=== PATIENT | female | born 1980 | race Caucasian/White ===

== ENCOUNTER 2020-04-06 14:48 | Outpatient (CLI) | payer OTHER, SELFPAY ==
--- NOTE | ~2020-04-06 | XR_ITS ---
EXAMINATION: XR ankle LT min 3V DATE: 04/06/2020 15:24 INDICATION: Acute left ankle pain TECHNIQUE: Anteroposterior, oblique, mortise, and lateral views of the left ankle were obtained. COMPARISON: None. FINDINGS: Alignment is normal. No fracture. Joint spaces are normal. Moderate-sized Achilles and plantar calcan eal spurs. Soft tissue swelling about the left ankle and lower leg which may be related to body habit us. IMPRESSION: 1. No acute osseous abnormality. Reviewed, dictated and finalized at location B.
== END 2020-04-06 14:49 | disposition home or self-care (01) ==
LOC: CHSIMG 14:56
PROVIDERS: PCP Physician Assistant; Visit Provider Nurse Practitioner Family
DX: M25.572 Pain in left ankle and joints of left foot (principal)
CPT/HCPCS: 73610

== ENCOUNTER 2020-04-25 08:22 | Outpatient (CLI) | payer OTHER, SELFPAY ==
--- NOTE | ~2020-04-25 | MR_ITS ---
EXAMINATION: MR ankle LT wo con DATE: 04/25/2020 09:17 INDICATION: 2 months of lateral left ankle pain TECHNIQUE: Magnetic resonance imaging (MRI) of the left ankle was performed without intravenous contr ast. Sequences included sagittal, coronal, and axial proton-density weighted fast spin echo without a nd with fat saturation. COMPARISON: None. FINDINGS: Medial ankle ligaments: Deep and superficial deltoid ligaments as well as the spring ligament are normal. Lateral ankle ligaments: The anterior and posterior inferior tibiofibular ligaments are normal. The anterior talofibular, calc aneofibular and posterior talofibular ligaments are normal. Tendons: Small enthesophyte at the calcaneal insertion of the otherwise normal Achilles tendon. Small amount o f fluid along the otherwise normal peroneus longus and brevis tendons consistent with mild tenosynovi tis. The tibialis anterior and extensor hallucis longus and extensor digitorum longus tendons are nor mal. The tibialis posterior, flexor digitorum longus and flexor hallucis longus tendons are normal. Plantar fascia: Large plantar calcaneal spur. There is prominent thickening and mild increased signal of the proximal aspect of the central component of the plantar aponeurosis likely degenerative chronic enthesopathy without surrounding edema to suggest acute plantar fasciitis. Bones//other: Nonspecific marrow edema in the talus along the posterior facet of the subtalar joint surrounding a r egion of linear low signal intensity potentially representing a fracture line. Marrow signal is other paiz normal. 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 There is a 1.7 x 0.8 x 1. 3 cm multilobulated ganglion cyst overlying the dorsal neck of the talus which appears to arise from the talonavicular joint. Physiologic amount fluid in the joint spaces. IMPRESSION: 1. Nonspecific marrow edema in the talus surrounding linear low signal paralleling the posterior face t of the subtalar joint potentially representing a stress fracture line. Alternatively the edema coul d be reactive related to the mild osteoarthritis at the subtalar joint. 2. Prominent chronic plantar enthesopathy with large plantar calcaneus spur and thickening of the pro ximal plantar aponeurosis. 3. Small multiloculated ganglion cyst along the dorsal neck of the talus which appears to arise from the talonavicular joint. 4. Mild subtalar and calcaneocuboid osteoarthritis. Reviewed, dictated and finalized at location A. ERS' COMPENSATION MEDIATOR IMPRESSION: 1. Nonspecific marrow edema in the talus surrounding linear low signal parallel ing the posterior facet of the subtalar joint potentially representing a stress fracture line. Alternatively the edema could be reactive related to the mild o steoarthritis at the subtalar joint. 2. Prominent chronic plantar enthesopathy with large plantar calcaneus spur and thickening of the proximal plantar aponeurosis. 3. Small multiloculated ganglion cyst along the dorsal neck of the talus which appears to arise from the talonavicular joint. 4. Mild subtalar and calcaneocuboid osteoarthritis.
== END 2020-04-25 08:23 | disposition home or self-care (01) ==
PROVIDERS: PCP Nurse Practitioner Family; Visit Provider Nurse Practitioner Family
DX: M25.572 Pain in left ankle and joints of left foot (principal); M77.32 Calcaneal spur, left foot; M67.472 Ganglion, left ankle and foot
CPT/HCPCS: 73721

== ENCOUNTER 2020-07-03 20:53 | Emergency (ER) | payer OTHER, SELFPAY ==
--- NOTE | ~2020-07-03 | XR_ITS ---
EXAMINATION: XR chest 1V portable DATE: 07/03/2020 21:35 INDICATION: Right-sided chest pain radiating to the right arm TECHNIQUE: frontal view of the chest was obtained. COMPARISON: None FINDINGS: The lungs are clear with no focal airspace opacities, pulmonary edema, pleural effusion or pneumothor ax. The cardiomediastinal silhouette is normal. IMPRESSION: 1. No acute cardiopulmonary disease. Reviewed, dictated and finalized at location A. CONCILIATOR
[2020-07-03 21:05] VITALS: BP 136/82; PULSE 87; RESP 22; TEMP 36.6; O2SAT 97
--- NOTE | 2020-07-03 21:14 | ECG_ITS ---
Measurements Intervals [place] Rate: 68 P: [place]: 0 QRS: 20 QRSD: 98 T: 31 QT: 407 QTc: 435 Interpretive Statements SINUS OR ECTOPIC ATRIAL RHYTHM DELAYED PRECORDIAL R/S TRANSITION BASELINE ARTIFACT- I, II, III, AVL, AVF, V5-V6 BORDERLINE ECG Electronically Signed On 07-04-2020 9:01:14 DIRECT MAIL COORDINATOR by Shabbir Cowan D.O.
[2020-07-03] MEDS: ASPIRIN 81 MG CHEWABLE TABLET 324 MG PO (21:31)
[2020-07-03 21:38] VITALS: PULSE 87; O2SAT 97
[2020-07-03 21:39] LABS: Basophils Absolute Auto 0.03 K/mm3 (0.00-0.10); Basophils Percent Auto 0.2 % (0.0-1.0); Eosinophils Absolute Auto 0.19 K/mm3 (0.02-0.50); Eosinophils Percent Auto 1.5 % (1.0-6.0); Hematocrit 35.5 % (35.0-49.0); Hemoglobin 11.8 g/dL (12.0-15.0); Immature Granulocyte Absolute 0.05 K/mm3 (0.00-0.00); Immature Granulocyte Percent A 0.4 % (0.0-0.0); Lymphocytes Absolute Auto 4.36 K/mm3 (1.10-4.50); Lymphocytes Percent Auto 33.9 % (18.0-42.0); Mean Corpuscular HGB Conc 33.2 g/dL (32.0-36.0); Mean Corpuscular Hemoglobin 28.6 pg (27.0-31.0); Mean Corpuscular Volume 86.2 fL (78.0-102.0); Monocytes Absolute Auto 0.66 K/mm3 (0.10-0.90); Monocytes Percent Auto 5.1 % (2.0-11.0); Neutrophils Absolute Auto 7.6 K/mm3 (1.7-7.2); Neutrophils Percent Auto 58.9 % (50.0-70.0); Platelet Count Result 372 K/mm3 (150-420); Red Blood Count 4.12 M/mm3 (4.20-5.40); Red Cell Distribution Width 13.9 % (11.6-14.4); White Blood Count 12.9 K/mm3 (4.8-10.8)
[2020-07-03 21:52] LABS: D Dimer 0.24 mg/L (0.19-0.50)
[2020-07-03] MEDS: KETOROLAC 30 MG/ML VIAL (*BKC) IV PUSH (21:58)
[2020-07-03 21:59] LABS: Alanine Aminotransferase 24 U/L (14-59); Albumin Level 3.5 g/dL (3.4-5.0); Alkaline Phosphatase 107 U/L (46-116); Anion Gap 7 mmol/L (8-16); Aspartate Amino Transferase 13 U/L (15-37); Bilirubin,Total 0.2 mg/dL (0.00-1.00); Blood Urea Nitrogen 19 mg/dL (7-18); Calcium 9.2 mg/dL (8.5-10.1); Carbon Dioxide 28 mmol/L (21-32); Chloride 100 mmol/L (98-108); Estimated CRCL calculation 92 ml/min; Estimated Glomerular Filt Rate 56; Glucose 111 mg/dL (70-99); Osmolality Calculated 283 mOsm/kg (285-295); Potassium 3.7 mmol/L (3.5-5.1); Sodium 135 mmol/L (136-145); Total Protein 7.9 g/dL (6.4-8.2)
[2020-07-03 22:01] LABS: Troponin I 5.4 ng/L (0.00-60.4)
--- NOTE | 2020-07-03 22:51 | ED.CHESTPAIN ---
HPI - Chest Pain General Chief Complaint: Chest Pain Stated Complaint: chest pain in chest/arm on R side Time Seen by Provider: 07/03/20 21:15 Source: patient Mode of arrival: ambulatory Limitations: no limitations History of Present Illness HPI narrative: Chest pain midsternal radiating to left arm. This is associated with mild shortness of breath. MD complaint: chest pain Pertinent past history: other (anxiety disorder) Timing of current episode: episodic Pain location: parasternal Pain radiation: right arm Severity: moderate Quality: tightness Relieving factors: nothing Exacerbating factors: nothing Context: recent illness Associated symptoms: nausea and vomiting Risk Factors Coronary artery disease risk factors: none Thoracic aortic dissection risk factors: none Related Data Home Medications Medication Instructions Recorded Confirmed acyclovir 400 mg PO PRN PRN 07/03/20 07/03/20 atorvastatin 40 mg PO DAILY 07/03/20 07/03/20 buspirone 5 mg PO DAILY 07/03/20 07/03/20 cyclobenzaprine 10 mg PO PRN PRN 07/03/20 07/03/20 hydrochlorothiazide 25 mg PO DAILY 07/03/20 07/03/20 liothyronine 5 mcg PO DAILY 07/03/20 07/03/20 lorazepam 1 mg PO DAILY 07/03/20 07/03/20 losartan 50 mg PO DAILY 07/03/20 07/03/20 Allergies Allergy/AdvReac Type Severity Reaction Status Date / Time Sulfa (Sulfonamide Allergy Unknown Unknown Verified 05/23/20 10:29 Antibiotics) Review of Systems Constitutional: Constitutional: Reports no additional constitutional complaints Eyes: Eyes: Reports no additional eye complaints ENT: Reports system reviewed and no additional complaints, except as documented Cardiovascular: Cardiovascular: Reports no additional cardiovascular complaints Respiratory: Respiratory: Reports no additional respiratory complaints Gastrointestinal: Gastrointestinal: Reports no additional gastrointestinal complaints Genitourinary: Genitourinary: Reports no additional female genitourinary complaints Musculoskeletal: Musculoskeletal: Reports no additional musculoskeletal complaints Integumentary/Breasts: Skin/Breast: Reports system reviewed and no additional complaints, except as docu Neurologic: Reports system reviewed and no additional complaints, except as documented Psychiatric: Psychiatric: Reports no additional psychiatric complaints Endocrine: Endocrine: Reports no additional endocrine complaints Hematologic/Lymphatic: Hematologic/Lymphatic: Reports no additional hematologic/lymphatic complaints Allergic/Immunologic: Allergic/Immunologic: Reports no additional allergic/immunologic complaints PMFSH Past Medical History Medical History Anxiety Fibrosis of subtalar joint Hypertension Obstructive sleep apnea Stress fracture of tarsal bone of left foot Surgical History Surgical History History of tonsillectomy Family History Family History Other Asthma Heart disease Hypertension Social History Social History Smoking status: Never smoker Alcohol intake: never Substance use: never Substance use type: does not use Gender identity (if verbalized by the patient): Female Exam Narrative: Exam Narrative: atypical chest pain in midsternal area and radiating to right arm. Const: General: cooperative Nutritional Appearance: average body habitus Orientation/consciousness: oriented to person and oriented to place HENMT: Head: normal to inspection Ears: hearing grossly normal bilaterally, external ears normal and TM's normal bilaterally General nose exam: Normal external nose present Face and sinus: normal facial exam Mouth: Yes Normal oral and palatal mucosa present, Yes oropharynx normal and Yes moist mucous membranes Teeth and gingiva: dentition normal Throat: posterior oropharynx no
[2020-07-03 23:43] VITALS: BP 127/53; PULSE 82; RESP 20; O2SAT 97
[2020-07-03 23:47] LABS: BNP 12.7 pg/mL (0-100)
== END 2020-07-04 | disposition home or self-care (01) ==
PROVIDERS: Emergency Provider Emergency Medicine; PCP Physician Assistant
DX: R00.2 Palpitations (principal)
CPT/HCPCS: 36415; 71045; 80053; 83880; 84484; 85025; 85380; 93005; 96374; 99283; 99284; A9270; J1885

== ENCOUNTER 2020-07-04 14:10 | Outpatient (CLI) | payer OTHER, SELFPAY ==
--- NOTE | 2020-07-04 14:17 | ECHO_ITS ---
Patient Info Name: Helen Parr Age: 40 years : 1980 Gender: Female Ht: 64 in Wt: 350 lbs BSA: 2.79 m2 HR: 72 bpm BP: 142 / 70 mmHg Heart Rhythm: Sinus Rhythm Technical Quality: Poor Exam Date: 07/04/2020 2:30 PM Exam Location: [facility] Patient Status: Outpatient Admit Date: 07/04/2020 Staff Ordering Physician: Wilver Pollock MD Financial Systems Administrator: Marce Min RDCS Attending Provider: Wilver Pollock MD Referring Physician: Chu BURROUGHS Exam Type: CA echo doppler color flow Study Info Indications R00.2 - Palpitations Complete two-dimensional, color flow and Doppler transthoracic echocardiogram is performed. Strain analysis performed. Reason for Poor Study: poor echocardiographic windows History/Risk Factors Hypertension: Yes Dyslipidemia: Yes Congenital Heart Disease (CHD): No Peripheral Arterial Disease (PAD): No Myocardial Infarction (MD): No Chronic Lung Disease: No Obesity: Yes Renal Disease: No Congestive Heart Failure (CHF): No Cardiomyopathy/LV Systolic Dysfunction: No Diabetes Mellitus: No COPD: No Tobacco Use: Never Cerebrovascular Disease: No Family History: Coronary Artery Disease Deep Vein Thrombosis (DVT): None Dialysis: None Frailty Scale (CSHA): 3: Managing Well Cardiac Arrest: No Summary 1. Complete two-dimensional, color flow and Doppler transthoracic echocardiogram is performed. 2. Left ventricular chamber dimension is normal. 3. Left ventricular systolic function is normal, estimated at 65-70%. 4. The left ventricular diastolic function is normal. 5. Global longitudinal strain is normal at -19.2%. 6. There is trace mitral valve regurgitation. Left Ventricle Global longitudinal strain is normal at -19.2%. Left ventricular chamber dimension is normal. Left ventricular systolic function is normal, estimated at 65-70%. The left ventricular diastolic function is normal. Right Ventricle Right ventricular chamber dimension is normal. Right ventricular systolic function is normal. Left Atria Left atrial chamber dimension is normal. Right Atria Right atrial chamber dimension is normal. Aortic Valve The aortic valve is not well visualized. There is no aortic valve stenosis. There is no aortic valve regurgitation. Pulmonic Valve There is no pulmonic regurgitation. Mitral Valve There is no mitral valve stenosis. There is trace mitral valve regurgitation. Tricuspid Valve There is no tricuspid valve regurgitation. Pericardium/Pleural There is no pericardial effusion. Inferior Vena Cava Normal inferior vena cava with >50% collapse upon inspiration consistent with normal right atrial pressure, 5 mmHg. Aorta The aortic root size at the sinus of Valsalva is normal. Left Ventricular Outflow Tract Name Value Normal LVOT 2D LVOT Diameter 1.5 cm LVOT Doppler LVOT Peak Velocity 184 cm/s LVOT Peak Gradient 14 mmHg LVOT Mean Gradient 7 mmHg LVOT VTI
== END 2020-07-04 14:11 | disposition home or self-care (01) ==
PROVIDERS: PCP Physician Assistant; Visit Provider Emergency Medicine
DX: R00.2 Palpitations (principal)
CPT/HCPCS: 93225; 93226; 93306

== ENCOUNTER 2020-07-11 12:50 | Emergency (ER) | payer OTHER, SELFPAY ==
[2020-07-11] VITALS (38 sets, daily range): BP systolic 96–142; BP diastolic 55–101; PULSE 66–86; RESP 10–22; TEMP 36.6; O2SAT 94–100
--- NOTE | ~2020-07-11 | XR_ITS ---
EXAMINATION: XR chest 1V portable EXAM DATE: 07/11/2020 14:08 INDICATION: Shortness of breath, chest pain x 1mo . TECHNIQUE: Portable AP frontal chest x-ray was obtained. Comparison is made to prior examination from 07/03/2020. FINDINGS: The lungs are clear. There are no pleural effusions. The cardiomediastinal silhouette is within normal limits. There is no pneumothorax suspected. The bones and soft tissues are unremarkab le. IMPRESSION: Normal chest x-ray exam. Reviewed, dictated and finalized at location A. ASTRUCTURE TECHNICIAN IMPRESSION: Normal chest x-ray exam.
--- NOTE | 2020-07-11 13:01 | ECG_ITS ---
Measurements Intervals [place] Rate: 69 P: -15 IN: 128 QRS: 23 QRSD: 97 T: 35 QT: 413 QTc: 445 Interpretive Statements SINUS RHYTHM DELAYED PRECORDIAL R/S TRANSITION BASELINE ARTIFACT- I, II, III, AVR, AVL, AVF BORDERLINE ECG Electronically Signed On 07-11-2020 14:13:12 TELEHEALTH NURSE EDUCATOR by Shabbir Cowan D.O.
[2020-07-11 13:26] LABS: Basophils Absolute Auto 0.04 K/mm3 (0.00-0.10); Basophils Percent Auto 0.4 % (0.0-1.0); Eosinophils Absolute Auto 0.17 K/mm3 (0.02-0.50); Eosinophils Percent Auto 1.5 % (1.0-6.0); Hematocrit 36.3 % (35.0-49.0); Immature Granulocyte Absolute 0.05 K/mm3 (0.00-0.00); Immature Granulocyte Percent A 0.4 % (0.0-0.0); Lymphocytes Percent Auto 29.5 % (18.0-42.0); Mean Corpuscular HGB Conc 33.1 g/dL (32.0-36.0); Mean Corpuscular Hemoglobin 28.4 pg (27.0-31.0); Mean Platelet Volume 10.3 fl (9.2-11.8); Monocytes Absolute Auto 0.59 K/mm3 (0.10-0.90); Monocytes Percent Auto 5.3 % (2.0-11.0); Neutrophils Absolute Auto 7.1 K/mm3 (1.7-7.2); Neutrophils Percent Auto 62.9 % (50.0-70.0); Platelet Count Result 408 K/mm3 (150-420); Red Blood Count 4.22 M/mm3 (4.20-5.40); Red Cell Distribution Width 13.8 % (11.6-14.4); White Blood Count 11.2 K/mm3 (4.8-10.8)
--- NOTE | 2020-07-11 13:29 | ED.GENADULT ---
HPI - General Adult General Chief complaint: Chest Pain Stated complaint: chest pressure pains and sob Source: patient Mode of arrival: ambulatory Limitations: no limitations History of Present Illness HPI narrative: Helen is a 40F with a PMH of HTN, obesity and migraines that presented to the ED with chest pain. She has been having pains on and off for a month. Today she woke up with chest pressure that radiates to the left shoulder. It is associated with dizziness, SOB but no N/V or syncope. It is worse with activity and better with rest. She has a sister with CAD at a young age as well as a strong family history of CAD. Related Data Home Medications Medication Instructions Recorded Confirmed acyclovir 400 mg PO PRN PRN 07/03/20 07/11/20 atorvastatin 40 mg PO DAILY 07/03/20 07/11/20 buspirone 5 mg PO DAILY 07/03/20 07/11/20 cyclobenzaprine 10 mg PO PRN PRN 07/03/20 07/11/20 hydrochlorothiazide 25 mg PO DAILY 07/03/20 07/11/20 liothyronine 5 mcg PO DAILY 07/03/20 07/11/20 lorazepam 1 mg PO DAILY 07/03/20 07/11/20 losartan 50 mg PO DAILY 07/03/20 07/11/20 Allergies Allergy/AdvReac Type Severity Reaction Status Date / Time Sulfa (Sulfonamide Allergy Unknown Unknown Verified 05/23/20 10:29 Antibiotics) Review of Systems Constitutional: Constitutional: Reports no additional constitutional complaints, Denies chills and Denies fever(s) Eyes: Eyes: Reports no additional eye complaints ENT: Reports system reviewed and no additional complaints, except as documented Cardiovascular: Cardiovascular: Reports as per HPI Respiratory: Respiratory: Reports as per HPI Gastrointestinal: Gastrointestinal: Reports no additional gastrointestinal complaints Genitourinary: Genitourinary: Reports no additional female genitourinary complaints Musculoskeletal: Musculoskeletal: Reports no additional musculoskeletal complaints Integumentary/Breasts: Skin/Breast: Reports system reviewed and no additional complaints, except as docu Neurologic: Reports system reviewed and no additional complaints, except as documented Psychiatric: Psychiatric: Reports no additional psychiatric complaints Endocrine: Endocrine: Reports no additional endocrine complaints Hematologic/Lymphatic: Hematologic/Lymphatic: Reports no additional hematologic/lymphatic complaints [facility] Past Medical History Medical History Anxiety Fibrosis of subtalar joint Hypertension Obstructive sleep apnea Stress fracture of tarsal bone of left foot Surgical History Surgical History History of tonsillectomy Family History Family History Other Asthma Heart disease Hypertension Social History Social History Smoking status: Never smoker Alcohol intake: never Substance use: never Substance use type: does not use Gender identity (if verbalized by the patient): Female Exam Const: General: no acute distress and alert Orientation/consciousness: patient oriented x3 Limitations: No altered mental status HENMT: Head: normal to inspection and contusion Eyes: Conjunctivae: conjunctivae normal Pupils: Equal, round and reactive pupils present Neck: Neck: normal visual inspection Chest: Chest palpation & inspection: normal inspection of the chest and abnormal inspection of the chest Resp: Effort & Inspection: normal respiratory effort, not labored, no retractions and not tachypneic Auscultation: clear to auscultation bilaterally Cardio: Rate: regular rate Rhythm: regular rhythm GI: GI Palp: Yes Soft to palpation, No Tenderness to palpation present (GI) and No Guarding due to palpation present (GI) Back/Spine/Pelvis: Back: no CVA tenderness Skin: General skin exam: normal color Rashes: no rashes Neuro: General: patien
[2020-07-11 13:44] LABS: Alanine Aminotransferase 22 U/L (14-59); Albumin Level 3.6 g/dL (3.4-5.0); Alkaline Phosphatase 105 U/L (46-116); Anion Gap 9 mmol/L (8-16); Aspartate Amino Transferase 11 U/L (15-37); Bilirubin,Total 0.3 mg/dL (0.00-1.00); Blood Urea Nitrogen 17 mg/dL (7-18); Calcium 9.4 mg/dL (8.5-10.1); Carbon Dioxide 28 mmol/L (21-32); Chloride 99 mmol/L (98-108); Estimated CRCL calculation 101 ml/min; Estimated Glomerular Filt Rate > 60; Glucose 100 mg/dL (70-99); Lipase 110 U/L (73-393); Osmolality Calculated 283 mOsm/kg (285-295); Potassium 3.4 mmol/L (3.5-5.1); Sodium 136 mmol/L (136-145); Total Protein 8.2 g/dL (6.4-8.2); Troponin I 4.1 ng/L (0.00-60.4)
[2020-07-11 13:45] LABS: Influenza Control Valid (Valid); SARS-CoV-2 Ag Negative (Negative)
[2020-07-11 13:46] LABS: BNP 12.3 pg/mL (0-100); Prothrombin Time 10.8 Seconds (9.50-12.10)
[2020-07-11] MEDS: ASPIRIN 81 MG CHEWABLE TABLET 324 MG PO (13:53)
[2020-07-11] MEDS: NITROGLYCERIN SL 0.4 MG TABLET SUBLINGUAL (13:54)
[2020-07-11 17:01] LABS: Troponin I 9.6 ng/L (0.00-60.4)
== END 2020-07-11 17:35 | disposition home or self-care (01) ==
PROVIDERS: Emergency Provider Family Medicine; PCP Physician Assistant
DX: R07.9 Chest pain, unspecified (principal)
CPT/HCPCS: 36415; 71045; 80053; 83690; 83880; 84484; 85025; 85610; 87426; 87804; 93005; 99283; A9270; C9803

== ENCOUNTER 2020-07-12 20:28 | Emergency (ER) | payer OTHER, SELFPAY ==
--- NOTE | ~2020-07-12 | CT_ITS ---
EXAMINATION: CT chest abdomen wo con DATE: 07/12/2020 21:24 INDICATION: Chest and back pain TECHNIQUE: Computed tomography (CT) of the chest and abdomen was performed without intravenous contra st. The dose-length product (DLP) was 1646.69 mGy-cm. Automated exposure control and iterative recons truction technique were employed. COMPARISON: None FINDINGS: CHEST: The lungs are free of acute opacities. There is no pleural effusion or pneumothorax. No pathol ogically enlarged thoracic lymph nodes are identified. The heart size is normal. Calcified pulmonary nodules are consistent with old granulomatous disease. ABDOMEN: The liver, spleen, pancreas, gallbladder, and adrenal glands are normal. The kidneys are unr emarkable. There are no pathologically enlarged abdominal lymph nodes. No dilated loops of bowel are evident. There is a moderate volume of colonic stool. The appendix is normal. No free intraperitoneal gas is identified. There is mild lumbar spondylosis. A fat-containing umbilical hernia is noted. IMPRESSION: 1. No CT correlate for the patient's symptoms. Reviewed, dictated and finalized at location A. SPRAYER
[2020-07-12 20:35] VITALS: BP 157/87; PULSE 79; RESP 20; TEMP 36.2; O2SAT 97
--- NOTE | 2020-07-12 20:45 | ECG_ITS ---
Measurements Intervals [place] Rate: 92 P: -24 MT: 142 QRS: 25 QRSD: 94 T: 19 QT: 374 QTc: 463 Interpretive Statements SINUS RHYTHM BASELINE ARTIFACT- I, II, III, AVR, AVL, AVF, V1 NORMAL ECG Electronically Signed On 07-13-2020 8:35:24 REVIEW SCHEDULING COORDINATOR by Shabbir Cowan D.O.
[2020-07-12 21:14] VITALS: O2SAT 97
[2020-07-12 21:15] VITALS: PULSE 79
[2020-07-12] MEDS: KETOROLAC (*BKC) 60 MG/2 ML VIAL IM (21:22)
[2020-07-12 21:32] LABS: Troponin I 4.2 ng/L (0.00-60.4)
--- NOTE | 2020-07-12 21:46 | ED.CHESTPAIN ---
HPI - Chest Pain General Chief Complaint: Chest Pain Stated Complaint: back and chest pressure Source: patient History of Present Illness HPI narrative: this is a 40 old female that presents with chest pain pressure with no shortness of breath no nausea vomiting no abdominal pain no fever or chills. The patient states her pain radiates to her back, had a workup including chest x-ray blood work and EKG yesterday, apparently followed up with cardiology today, and apparently doing well throughout the day but developed this chest tightness again this evening was concerned and presented to the emergency department. Currently the patient appears anxious and tearful and is asking to get to the bottom of this chest discomfort, pain is some midsternal mildly reproducible radiating to her back with no shortness of breath no fever chills. complaint: chest pain and chest discomfort Onset (ago): day(s) Timing of current episode: episodic Prior episodes: Yes Onset: during rest Pain location: substernal Pain radiation: none Severity: moderate Pain scale (0-10): 6 Quality: tightness Relieving factors: nothing Exacerbating factors: nothing Related Data Home Medications Medication Instructions Recorded Confirmed acyclovir 400 mg PO PRN PRN 07/03/20 07/12/20 atorvastatin 40 mg PO DAILY 07/03/20 07/12/20 buspirone 5 mg PO DAILY 07/03/20 07/12/20 cyclobenzaprine 10 mg PO PRN PRN 07/03/20 07/12/20 hydrochlorothiazide 25 mg PO DAILY 07/03/20 07/12/20 liothyronine 5 mcg PO DAILY 07/03/20 07/12/20 lorazepam 1 mg PO DAILY 07/03/20 07/12/20 losartan 50 mg PO DAILY 07/03/20 07/12/20 Allergies Allergy/AdvReac Type Severity Reaction Status Date / Time Sulfa (Sulfonamide Allergy Unknown Unknown Verified 05/23/20 10:29 Antibiotics) Review of Systems Review of Systems: All systems reviewed & are unremarkable except as noted in HPI and below PMFSH Past Medical History Medical History Anxiety Fibrosis of subtalar joint Hypertension Obstructive sleep apnea Stress fracture of tarsal bone of left foot Surgical History Surgical History History of tonsillectomy Family History Family History Other Asthma Heart disease Hypertension Social History Social History Smoking status: Never smoker Alcohol intake: never Substance use: never Substance use type: does not use Gender identity (if verbalized by the patient): Female Exam Const: General: no acute distress and alert Orientation/consciousness: patient oriented x3 HENMT: Head: normal to inspection and contusion Eyes: Conjunctivae: conjunctivae normal Pupils: Equal, round and reactive pupils present EOM: EOMs intact bilaterally Neck: Neck: normal visual inspection, no lymphadenopathy and no meningeal signs Chest: Chest palpation & inspection: normal inspection of the chest Resp: Effort & Inspection: normal respiratory effort Auscultation: clear to auscultation bilaterally Cardio: Rate: regular rate Rhythm: regular rhythm GI: GI Palp: Yes Soft to palpation Percussion: Yes normal to percussion : General: Yes no CVA tenderness Back/Spine/Pelvis: Back: no CVA tenderness Skin: General skin exam: normal color Rashes: no rashes Extrem: General: normal to inspection and no pedal edema Psych: Mental Status: mental status grossly normal Course Course Emergency Course: Patient received IM Toradol and pain had improved, the patient continues to have some chest discomfort with anxiety, did review the chest CT and repeat EKG and repeat troponins. And advised her that they were in within normal limits. And to continue her follow-up with her primary care doctor and with her neuroradiologist as scheduled. Vital Signs Vital signs: Vital Sign
[2020-07-12 21:54] VITALS: BP 150/81; PULSE 82; RESP 20; O2SAT 99
== END 2020-07-12 22:03 | disposition home or self-care (01) ==
PROVIDERS: Emergency Provider Emergency Medicine; PCP Physician Assistant
DX: R07.89 Other chest pain (principal); F41.9 Anxiety disorder, unspecified
CPT/HCPCS: 36415; 71250; 74150; 84484; 93005; 96372; 99283; 99284; J1885

== ENCOUNTER 2020-11-23 07:51 | Outpatient (CLI) | payer OTHER, SELFPAY ==
--- NOTE | ~2020-11-23 | XR_ITS ---
EXAMINATION: XR chest 2V EXAM DATE: 11/23/2020 08:33 INDICATION: Hypertension, sob, chest pain overall . TECHNIQUE: Frontal and lateral projections of the chest obtained and reviewed. Comparison is made to prior examination from 07/11/2020. FINDINGS: The lungs are clear. There are no pleural effusions. The cardiomediastinal silhouette is within normal limits. There is no pneumothorax suspected. The bones and soft tissues are unremarkab le. There is no significant interval change. IMPRESSION: Normal chest x-ray exam. Reviewed, dictated and finalized at location B. IMPRESSION: Normal chest x-ray exam.
[2020-11-23 08:10] LABS: Basophils Absolute Auto 0.03 K/mm3 (0.00-0.10); Basophils Percent Auto 0.3 % (0.0-1.0); Eosinophils Absolute Auto 0.13 K/mm3 (0.02-0.50); Eosinophils Percent Auto 1.3 % (1.0-6.0); Hemoglobin 11.2 g/dL (12.0-15.0); Immature Granulocyte Absolute 0.07 K/mm3 (0.00-0.00); Immature Granulocyte Percent A 0.7 % (0.0-0.0); Lymphocytes Absolute Auto 2.94 K/mm3 (1.10-4.50); Lymphocytes Percent Auto 29.1 % (18.0-42.0); Mean Corpuscular Hemoglobin 27.5 pg (27.0-31.0); Mean Platelet Volume 9.8 fl (9.2-11.8); Monocytes Absolute Auto 0.58 K/mm3 (0.10-0.90); Monocytes Percent Auto 5.7 % (2.0-11.0); Neutrophils Absolute Auto 6.4 K/mm3 (1.7-7.2); Neutrophils Percent Auto 62.9 % (50.0-70.0); Platelet Count Result 354 K/mm3 (150-420); Red Blood Count 4.07 M/mm3 (4.20-5.40); Red Cell Distribution Width 14.4 % (11.6-14.4); White Blood Count 10.1 K/mm3 (4.8-10.8)
--- NOTE | 2020-11-23 08:10 | ECG_ITS ---
Measurements Intervals [place] Rate: 72 P: 7 IN: 147 QRS: 22 QRSD: 94 T: 44 QT: 417 QTc: 457 Interpretive Statements SINUS RHYTHM BORDERLINE T WAVE ABNORMALITY- ANTERIOR LEADS BASELINE WANDER- I, II, III, AVR, AVL, AVF, V1-V3 BORDERLINE ECG Electronically Signed On 11-23-2020 9:17:42 CDT by Shabbir Cowan D.O.
[2020-11-23 09:54] LABS: Alanine Aminotransferase 27 U/L (14-59); Albumin Level 3.4 g/dL (3.4-5.0); Alkaline Phosphatase 108 U/L (46-116); Anion Gap 10 mmol/L (8-16); Aspartate Amino Transferase 13 U/L (15-37); Bilirubin,Total 0.3 mg/dL (0.00-1.00); Blood Urea Nitrogen 20 mg/dL (7-18); Calcium 9.1 mg/dL (8.5-10.1); Carbon Dioxide 28 mmol/L (21-32); Chloride 101 mmol/L (98-108); Cholesterol 191 mg/dL (0-200); Estimated Glomerular Filt Rate > 60; Glucose 100 mg/dL (70-99); HDL Direct 32 mg/dL (40-60); LDL Cholesterol Calculated 106 mg/dL (<130); Osmolality Calculated 290 mOsm/kg (285-295); Potassium 4.3 mmol/L (3.5-5.1); Sodium 139 mmol/L (136-145); Total Protein 6.8 g/dL (6.4-8.2); Triglycerides 266 mg/dL (0-150)
[2020-11-23 09:55] LABS: Free T4 Free Thyroxine Reflex 0.96 ng/dL (0.76-1.46); Thyroid Stimulating Hormone Reflex 4.72 u/IU/mL (0.36-3.74)
[2020-11-25 22:04] LABS: Vitamin D 25 Hydroxy 21 ng/mL (30-100)
[2020-11-26 11:50] LABS: Prealbumin 17 mg/dL (17-34)
== END 2020-11-23 07:52 | disposition home or self-care (01) ==
LOC: CHSLAB 07:55
PROVIDERS: PCP Physician Assistant
DX: E78.5 Hyperlipidemia, unspecified (principal); I10 Essential (primary) hypertension; E03.9 Hypothyroidism, unspecified; E66.01 Morbid (severe) obesity due to excess calories; Z01.812 Encounter for preprocedural laboratory examination
CPT/HCPCS: 36415; 71046; 80053; 80061; 82306; 83036; 84134; 84439; 84443; 85025; 93005

== ENCOUNTER 2020-12-25 14:36 | Outpatient (CLI) | payer OTHER, SELFPAY ==
[2020-12-25 16:48] LABS: Ferritin 60 ng/mL (8-252); Iron 34 ug/dL (50-170); Percent Iron Saturation 9 % (12-57); Vitamin B12 557 pg/mL (193-986)
[2020-12-25 16:51] LABS: Beta HCG Quantitative < 1.00 mIU/mL (0-6)
== END 2020-12-25 14:37 | disposition home or self-care (01) ==
PROVIDERS: PCP Physician Assistant
DX: E66.01 Morbid (severe) obesity due to excess calories (principal); Z01.812 Encounter for preprocedural laboratory examination; D64.9 Anemia, unspecified
CPT/HCPCS: 36415; 82607; 82728; 83540; 83550; 84702

== ENCOUNTER 2021-02-21 10:10 | Outpatient (CLI) | payer OTHER, SELFPAY ==
[2021-02-21 11:46] LABS: Thyroid Stimulating Hormone 3.07 uIU/mL (0.36-3.74)
[2021-02-23 16:57] LABS: T4 Thyroxine 6.5 mcg/dL (5.1-11.9)
== END 2021-02-21 10:11 | disposition home or self-care (01) ==
PROVIDERS: PCP Physician Assistant
DX: E03.9 Hypothyroidism, unspecified (principal)
CPT/HCPCS: 36415; 84436; 84443

== ENCOUNTER 2021-05-17 07:13 | Outpatient (CLI) | payer OTHER, SELFPAY ==
[2021-05-17 08:05] LABS: SARS-CoV-2 RNA PCR Negative (Negative)
== END 2021-05-17 07:14 | disposition home or self-care (01) ==
LOC: CHSLAB 07:16
PROVIDERS: PCP Physician Assistant; Visit Provider Family Medicine
DX: Z01.818 Encounter for other preprocedural examination (principal); Z20.822 Contact with and (suspected) exposure to COVID-19
CPT/HCPCS: C9803; U0003; U0005

== ENCOUNTER 2021-06-11 11:10 | Outpatient (CLI) | payer OTHER, SELFPAY ==
[2021-06-11 11:56] LABS: Basophils Absolute Auto 0.03 K/mm3 (0.00-0.10); Basophils Percent Auto 0.3 % (0.0-1.0); Eosinophils Absolute Auto 0.17 K/mm3 (0.02-0.50); Eosinophils Percent Auto 1.7 % (1.0-6.0); Hematocrit 40.7 % (35.0-49.0); Hemoglobin 13.1 g/dL (12.0-15.0); Immature Granulocyte Absolute 0.02 K/mm3 (0.00-0.00); Immature Granulocyte Percent A 0.2 % (0.0-0.0); Lymphocytes Absolute Auto 3.04 K/mm3 (1.10-4.50); Lymphocytes Percent Auto 30.3 % (18.0-42.0); Mean Corpuscular HGB Conc 32.2 g/dL (32.0-36.0); Mean Corpuscular Hemoglobin 29.1 pg (27.0-31.0); Mean Corpuscular Volume 90.4 fL (78.0-102.0); Mean Platelet Volume 11.5 fl (9.2-11.8); Monocytes Absolute Auto 0.62 K/mm3 (0.10-0.90); Monocytes Percent Auto 6.2 % (2.0-11.0); Neutrophils Absolute Auto 6.2 K/mm3 (1.7-7.2); Neutrophils Percent Auto 61.3 % (50.0-70.0); Platelet Count Result 388 K/mm3 (150-420); Red Cell Distribution Width 13.6 % (11.6-14.4)
[2021-06-11 12:18] LABS: Anion Gap 11 mmol/L (8-16); Blood Urea Nitrogen 15 mg/dL (7-18); Calcium 9.3 mg/dL (8.5-10.1); Carbon Dioxide 25 mmol/L (21-32); Chloride 104 mmol/L (98-108); Estimated Glomerular Filt Rate 57; Glucose 106 mg/dL (70-99); Iron 51 ug/dL (50-170); Osmolality Calculated 290 mOsm/kg (285-295); Percent Iron Saturation 17 % (12-57); Potassium 4.3 mmol/L (3.5-5.1); Sodium 140 mmol/L (136-145); Thyroid Stimulating Hormone 3.14 uIU/mL (0.36-3.74)
[2021-06-14 12:48] LABS: Prealbumin 21 mg/dL (17-34)
[2021-06-14 19:33] LABS: Vitamin D 25 Hydroxy 52 ng/mL (30-100)
== END 2021-06-11 11:11 | disposition home or self-care (01) ==
LOC: CHSLAB 11:15
PROVIDERS: PCP Physician Assistant
DX: D64.9 Anemia, unspecified (principal); Z98.84 Bariatric surgery status; E78.5 Hyperlipidemia, unspecified; E03.9 Hypothyroidism, unspecified; R73.03 Prediabetes; Z00.00 Encounter for general adult medical examination without abnormal findings
CPT/HCPCS: 36415; 80048; 82306; 83540; 83550; 84134; 84443; 85025

== ENCOUNTER 2021-09-19 08:04 | Emergency (ER) | payer OTHER, SELFPAY ==
[2021-09-19 08:20] VITALS: BP 126/65; PULSE 66; RESP 20; TEMP 35.9; O2SAT 100
--- NOTE | 2021-09-19 08:36 | ED.HA ---
HPI - Headache General Chief Complaint: Headache Stated Complaint: MIGRAINE Time Seen by Provider: 09/19/21 08:36 Source: patient Mode of arrival: ambulatory Limitations: no limitations History of Present Illness HPI Narrative: this is a 41-year-old female that presents with some migraine headache it is mainly right-sided throbbing light and noise sensitive, has had migraines in the past, had a gastric bypass sleeve and unable to take NSAIDs, currently there is no neck stiffness no fever or chills does have some mild nausea rates her headache about a 6/10 with no chest pain no abdominal pain. MD elicited complaint: headache and migraine Onset (ago): day(s) Onset description: gradually Location: right Severity: moderate Pain scale (0-10): 6 Quality & Timing: throbbing and similar to previous headaches Exacerbating factors: light and noise Relieving factors: rest Related Data Home Medications Medication Instructions Recorded Confirmed acyclovir 400 mg PO PRN PRN 07/03/20 07/12/20 atorvastatin 40 mg PO DAILY 07/03/20 07/12/20 buspirone 5 mg PO DAILY 07/03/20 07/12/20 cyclobenzaprine 10 mg PO PRN PRN 07/03/20 07/12/20 hydrochlorothiazide 25 mg PO DAILY 07/03/20 07/12/20 liothyronine 5 mcg PO DAILY 07/03/20 07/12/20 lorazepam 1 mg PO DAILY 07/03/20 07/12/20 losartan 50 mg PO DAILY 07/03/20 07/12/20 Allergies Allergy/AdvReac Type Severity Reaction Status Date / Time Sulfa (Sulfonamide Allergy Unknown Unknown Verified 05/23/20 10:29 Antibiotics) Review of Systems Review of Systems: All systems reviewed & are unremarkable except as noted in HPI and below PMFSH Past Medical History Medical History Anxiety Fibrosis of subtalar joint Hypertension Obstructive sleep apnea Stress fracture of tarsal bone of left foot Surgical History Surgical History History of tonsillectomy Family History Family History Other Asthma Heart disease Hypertension Social History Social History Smoking status: Never smoker Alcohol intake: never Substance use: never Substance use type: does not use Gender identity (if verbalized by the patient): Female Exam Const: General: no acute distress and alert Orientation/consciousness: patient oriented x3 HENMT: Head: normal to inspection Eyes: Conjunctivae: conjunctivae normal Pupils: Equal, round and reactive pupils present EOM: EOMs intact bilaterally Neck: Neck: normal visual inspection, no lymphadenopathy and no meningeal signs Chest: Chest palpation & inspection: normal inspection of the chest Resp: Effort & Inspection: normal respiratory effort Auscultation: clear to auscultation bilaterally Cardio: Rate: regular rate Rhythm: regular rhythm GI: GI Palp: Yes Soft to palpation Percussion: Yes normal to percussion : General: Yes no CVA tenderness Urinary Catheter: Urinary Catheter: patent and draining Back/Spine/Pelvis: Back: no CVA tenderness Skin: General skin exam: normal color Rashes: no rashes Neuro: General: patient oriented x3 and moves all extremities Extrem: General: normal to inspection and no pedal edema Psych: Mental Status: mental status grossly normal Affect: normal affect Attitude: cooperative Course Course Emergency Course: Patient received IV fluids with IV Toradol and IV Zofran, Reassessment patient [place] sx have improved. Critical Care Time Critical Care Time Critical Care Time: No Discharge Plan Discharge Clinical Impression: Migraine Qualifiers: Migraine type: with aura Status migrainosus presence: without status migrainosus Intractability: not intractable Qualified Code(s): G43.109 - Migraine with aura, not intractable, without status migrainosus Patient Disposition: Home, Self-Care
[2021-09-19] MEDS: SODIUM CHLORIDE 0.9% IV 500 ML 999 ML IV CONT (08:47)
[2021-09-19] MEDS: KETOROLAC 30 MG/ML VIAL (*BKC) IV PUSH (08:50)
[2021-09-19] MEDS: ONDANSETRON INJ 4 MG/2 ML VIAL IV PUSH (08:52)
[2021-09-19 09:20] VITALS: BP 115/78; PULSE 64; RESP 20; TEMP 37.1; O2SAT 100
== END 2021-09-19 09:35 | disposition home or self-care (01) ==
PROVIDERS: Emergency Provider Emergency Medicine; PCP Physician Assistant
DX: G43.109 Migraine with aura, not intractable, without status migrainosus (principal)
CPT/HCPCS: 96374; 96375; 99284; J1885; J2405; J7030; J7040

== ENCOUNTER 2021-10-12 09:58 | Outpatient (CLI) | payer OTHER, SELFPAY ==
--- NOTE | ~2021-10-12 | MR_ITS ---
EXAMINATION: MR brain/brain stem wo con DATE: 10/12/2021 11:23 INDICATION: Migraines with aura and wo status migrainosus TECHNIQUE: Magnetic resonance imaging (MRI) of the brain and brainstem was performed without intraven ous contrast. Sequences included sagittal and axial T1-weighted SE, axial diffusion-weighted FS EPI A SSET, axial T2*-weighted GRE, axial T2-weighted FLAIR Propeller, and axial T2-weighted Propeller. Pos tcontrast axial and coronal T1-weighted SE was obtained. Apparent diffusion coefficient (ADC) maps we re created. COMPARISON: None. FINDINGS: No abnormal restricted diffusion to suggest acute ischemic infarct. No MRI evidence of hemorrhage or extra-axial collection. No suspicious foci of susceptibility to suggest prior intraparenchymal hemorr ines. No significant white matter change. No evidence of advanced or lobar predominant parenchymal vo lume loss. Ventricles are normal in size. No significant atrophy. Basilar cisterns are patent. Normal flow voids are preserved. Aerated spaces are clear. Orbits are within normal limits. IMPRESSION: 1. Normal MR brain findings. Reviewed, dictated and finalized at location K.
== END 2021-10-12 09:59 | disposition home or self-care (01) ==
LOC: CHSIMG 09:59
PROVIDERS: PCP Physician Assistant
DX: G43.109 Migraine with aura, not intractable, without status migrainosus (principal)
CPT/HCPCS: 70551

== ENCOUNTER 2022-04-07 08:19 | Outpatient (CLI) | payer OTHER, BC, SELFPAY ==
[2022-04-07 08:40] LABS: Basophils Absolute Auto 0.03 K/mm3 (0.00-0.10); Basophils Percent Auto 0.3 % (0.0-1.0); Eosinophils Absolute Auto 0.11 K/mm3 (0.02-0.50); Eosinophils Percent Auto 1.2 % (1.0-6.0); Hematocrit 41.7 % (35.0-49.0); Hemoglobin 13.9 g/dL (12.0-15.0); Immature Granulocyte Absolute 0.03 K/mm3 (0.00-0.00); Immature Granulocyte Percent A 0.3 % (0.0-0.0); Lymphocytes Absolute Auto 3.26 K/mm3 (1.10-4.50); Lymphocytes Percent Auto 34.7 % (18.0-42.0); Mean Corpuscular HGB Conc 33.3 g/dL (32.0-36.0); Mean Corpuscular Hemoglobin 30.9 pg (27.0-31.0); Mean Corpuscular Volume 92.7 fL (78.0-102.0); Monocytes Absolute Auto 0.58 K/mm3 (0.10-0.90); Monocytes Percent Auto 6.2 % (2.0-11.0); Neutrophils Absolute Auto 5.4 K/mm3 (1.7-7.2); Neutrophils Percent Auto 57.3 % (50.0-70.0); Platelet Count Result 301 K/mm3 (150-420); Red Cell Distribution Width 12.4 % (11.6-14.4); White Blood Count 9.4 K/mm3 (4.8-10.8)
[2022-04-07 10:21] LABS: Alanine Aminotransferase 24 U/L (14-59); Albumin Level 3.7 g/dL (3.4-5.0); Alkaline Phosphatase 146 U/L (46-116); Anion Gap 10 mmol/L (8-16); Aspartate Amino Transferase 12 U/L (15-37); Bilirubin,Total 0.5 mg/dL (0.00-1.00); Blood Urea Nitrogen 13 mg/dL (7-18); Calcium 9.2 mg/dL (8.5-10.1); Carbon Dioxide 26 mmol/L (21-32); Chloride 107 mmol/L (98-108); Estimated Glomerular Filt Rate > 60; Folic Acid 18.2 ng/mL (8.6->20); Glucose 85 mg/dL (70-99); Osmolality Calculated 295 mOsm/kg (285-295); Sodium 143 mmol/L (136-145); Total Protein 7.2 g/dL (6.4-8.2)
[2022-04-10 20:22] LABS: Vitamin D 25 Hydroxy 35 ng/mL (30-100)
== END 2022-04-07 08:20 | disposition home or self-care (01) ==
LOC: CHSLAB 08:28
PROVIDERS: PCP Physician Assistant
DX: D64.9 Anemia, unspecified (principal); Z98.84 Bariatric surgery status; Z68.43 Body mass index [BMI] 50.0-59.9, adult; I10 Essential (primary) hypertension; E78.5 Hyperlipidemia, unspecified; E03.9 Hypothyroidism, unspecified; R73.03 Prediabetes
CPT/HCPCS: 36415; 80053; 82306; 82746; 85025

== ENCOUNTER 2022-06-04 10:20 | Outpatient (CLI) | payer BC, SELFPAY ==
--- NOTE | ~2022-06-04 | MM_ITS ---
EXAMINATION: MM screening boo BI w bharti HISTORY: Screening TECHNIQUE: Craniocaudal and mediolateral oblique 3-D tomosynthesis images were obtained and synthetic 2-D images were generated. CAD analysis was submitted and interpreted. COMPARISON: No prior mammogram is available for comparison at this institution. BREAST PARENCHYMAL COMPOSITION: There are scattered areas of fibroglandular density. FINDINGS: There is no evidence of suspicious mass, calcification, or architectural distortion to sugg est malignancy in either breast. There has been no suspicious interval change. IMPRESSION: 1. No mammographic evidence of malignancy. 2. Recommend routine screening mammography in one year. BI-RADS Category 1: Negative Reviewed, dictated and finalized at location B. [facility] BILLING SPECIALIST
== END 2022-06-04 10:21 | disposition home or self-care (01) ==
LOC: CHSIMG 10:22
PROVIDERS: PCP Physician Assistant; Visit Provider Physician Assistant
DX: Z12.31 Encounter for screening mammogram for malignant neoplasm of breast (principal)
CPT/HCPCS: 77063; 77067

== ENCOUNTER 2022-06-17 14:38 | Outpatient (CLI) | payer BC, SELFPAY ==
[2022-06-17 15:11] LABS: Hemoglobin A1C 5.3 % (<5.7)
[2022-06-17 15:52] LABS: Cholesterol 319 mg/dL (0-200); Ferritin 114 ng/mL (8-252); HDL Direct 48 mg/dL (40-60); Iron 104 ug/dL (50-170); LDL Cholesterol Calculated 229 mg/dL (<130); Magnesium 1.6 mg/dL (1.8-2.4); Percent Iron Saturation 34 % (12-57); Triglycerides 209 mg/dL (0-150); Vitamin B12 664 pg/mL (193-986)
[2022-06-19 19:35] LABS: Vitamin D 25 Hydroxy 24 ng/mL (30-100)
[2022-06-21 09:04] LABS: Vitamin B1 9 nmol/L (8-30)
== END 2022-06-17 14:39 | disposition home or self-care (01) ==
LOC: CHSLAB 14:42
PROVIDERS: PCP Physician Assistant
DX: D64.9 Anemia, unspecified (principal); I10 Essential (primary) hypertension; Z98.84 Bariatric surgery status; Z68.43 Body mass index [BMI] 50.0-59.9, adult
CPT/HCPCS: 36415; 80061; 82306; 82607; 82728; 82746; 83036; 83540; 83550; 83735; 84425

== ENCOUNTER 2023-04-29 07:48 | Outpatient (CLI) | payer BC, SELFPAY ==
[2023-04-29 08:12] LABS: Basophils Absolute Auto 0.03 K/mm3 (0.00-0.10); Basophils Percent Auto 0.3 % (0.0-1.0); Eosinophils Absolute Auto 0.08 K/mm3 (0.02-0.50); Eosinophils Percent Auto 0.9 % (1.0-6.0); Hematocrit 40.8 % (35.0-49.0); Hemoglobin 13.7 g/dL (12.0-15.0); Immature Granulocyte Absolute 0.02 K/mm3 (0.00-0.00); Immature Granulocyte Percent A 0.2 % (0.0-0.0); Lymphocytes Absolute Auto 3.28 K/mm3 (1.10-4.50); Lymphocytes Percent Auto 37.9 % (18.0-42.0); Mean Corpuscular HGB Conc 33.6 g/dL (32.0-36.0); Mean Corpuscular Hemoglobin 30.4 pg (27.0-31.0); Mean Corpuscular Volume 90.5 fL (78.0-102.0); Mean Platelet Volume 10.1 fl (9.2-11.8); Monocytes Percent Auto 5.8 % (2.0-11.0); Neutrophils Absolute Auto 4.8 K/mm3 (1.7-7.2); Neutrophils Percent Auto 54.9 % (50.0-70.0); Platelet Count Result 332 K/mm3 (150-420); Red Blood Count 4.51 M/mm3 (4.20-5.40); Red Cell Distribution Width 12.1 % (11.6-14.4); White Blood Count 8.7 K/mm3 (4.8-10.8)
[2023-04-29 09:03] LABS: Alanine Aminotransferase 17 U/L (14-59); Albumin Level 3.4 g/dL (3.4-5.0); Alkaline Phosphatase 97 U/L (46-116); Anion Gap 11 mmol/L (8-16); Aspartate Amino Transferase 26 U/L (15-37); Bilirubin,Total 0.5 mg/dL (0.00-1.00); Blood Urea Nitrogen 13 mg/dL (7-18); Calcium 9.3 mg/dL (8.5-10.1); Carbon Dioxide 23 mmol/L (21-32); Chloride 103 mmol/L (98-108); Cholesterol 273 mg/dL (0-200); Estimated Glomerular Filt Rate > 60; Ferritin 73 ng/mL (8-252); Folic Acid 12.6 ng/mL (8.6->20); Glucose 91 mg/dL (70-99); HDL Direct 38 mg/dL (40-60); Iron 78 ug/dL (50-170); LDL Cholesterol Calculated 195 mg/dL (<130); Magnesium 2.1 mg/dL (1.8-2.4); Osmolality Calculated 284 mOsm/kg (285-295); Percent Iron Saturation 21 % (12-57); Potassium 4.2 mmol/L (3.5-5.1); Sodium 137 mmol/L (136-145); Triglycerides 199 mg/dL (0-150); Vitamin B12 524 pg/mL (193-986)
[2023-05-03 17:52] LABS: Vitamin D 25 Hydroxy 40 ng/mL (30-100)
[2023-05-04 08:19] LABS: Vitamin B1 14 nmol/L (8-30)
== END 2023-04-29 07:49 | disposition home or self-care (01) ==
LOC: CHSLAB 07:52
PROVIDERS: PCP Physician Assistant
DX: D64.9 Anemia, unspecified (principal); Z98.84 Bariatric surgery status; I10 Essential (primary) hypertension; E78.5 Hyperlipidemia, unspecified; E83.42 Hypomagnesemia; R73.03 Prediabetes
CPT/HCPCS: 36415; 80053; 80061; 82306; 82607; 82728; 82746; 83540; 83550; 83735; 84425; 85025

== ENCOUNTER 2024-04-21 08:22 | Outpatient (CLI) | payer BC, SELFPAY ==
[2024-04-21 08:41] LABS: Basophils Absolute Auto 0.03 K/mm3 (0.00-0.10); Basophils Percent Auto 0.4 % (0.0-1.0); Eosinophils Absolute Auto 0.08 K/mm3 (0.02-0.50); Hematocrit 39.6 % (35.0-49.0); Immature Granulocyte Absolute 0.02 K/mm3 (0.00-0.00); Immature Granulocyte Percent A 0.2 % (0.0-0.0); Lymphocytes Absolute Auto 3.36 K/mm3 (1.10-4.50); Lymphocytes Percent Auto 40.8 % (18.0-42.0); Mean Corpuscular HGB Conc 32.8 g/dL (32-36); Mean Corpuscular Hemoglobin 29.6 pg (27.0-31.0); Mean Corpuscular Volume 90.2 fL (78.0-102.0); Mean Platelet Volume 10.1 fl (9.2-11.8); Monocytes Absolute Auto 0.49 K/mm3 (0.10-0.90); Neutrophils Absolute Auto 4.25 K/mm3 (1.70-7.20); Neutrophils Percent Auto 51.6 % (50.0-70.0); Platelet Count Result 339 K/mm3 (150-420); Red Blood Count 4.39 M/mm3 (4.20-5.40); Red Cell Distribution Width 12.3 % (11.6-14.4); White Blood Count 8.2 K/mm3 (4.8-10.8)
[2024-04-21 09:51] LABS: Alanine Aminotransferase 18 U/L (14-59); Albumin Level 3.3 g/dL (3.4-5.0); Alkaline Phosphatase 96 U/L (46-116); Anion Gap 9 mmol/L (4-12); Aspartate Amino Transferase 11 U/L (15-37); Bilirubin,Total 0.4 mg/dL (0.00-1.00); Blood Urea Nitrogen 14 mg/dL (7-18); Calcium 9.2 mg/dL (8.5-10.1); Carbon Dioxide 25 mmol/L (21-32); Chloride 107 mmol/L (98-108); Cholesterol 242 mg/dL (0-200); Estimated Glomerular Filt Rate > 60; Folic Acid 3.6 ng/mL (8.6->20); Glucose 82 mg/dL (70-99); HDL Direct 47 mg/dL (40-60); Iron 85 ug/dL (50-170); LDL Cholesterol Calculated 166 mg/dL (<130); Magnesium 2.3 mg/dL (1.8-2.4); Osmolality Calculated 291 mOsm/kg (285-295); Percent Iron Saturation 22 % (12-57); Potassium 4.4 mmol/L (3.5-5.1); Sodium 141 mmol/L (136-145); Total Protein 6.7 g/dL (6.4-8.2); Triglycerides 146 mg/dL (0-150); Vitamin B12 313 pg/mL (193-986)
[2024-04-23 02:43] LABS: Vitamin D 25 Hydroxy 32 ng/mL (30-100)
[2024-04-24 12:59] LABS: Zinc 62 mcg/dL (60-130)
[2024-04-26 09:34] LABS: Vitamin B1 16 nmol/L (8-30)
== END 2024-04-21 08:23 | disposition home or self-care (01) ==
PROVIDERS: PCP Physician Assistant
DX: Z00.00 Encounter for general adult medical examination without abnormal findings (principal); D64.9 Anemia, unspecified; Z98.84 Bariatric surgery status; I10 Essential (primary) hypertension; E78.5 Hyperlipidemia, unspecified; E83.42 Hypomagnesemia; G47.33 Obstructive sleep apnea (adult) (pediatric); R73.03 Prediabetes
CPT/HCPCS: 36415; 80053; 80061; 82306; 82525; 82607; 82746; 83540; 83550; 83735; 84425; 84630; 85025

== ENCOUNTER 2024-07-29 07:26 | Outpatient (CLI) | payer OTHER, BC, SELFPAY ==
--- NOTE | ~2024-07-29 | MM_ITS ---
EXAMINATION: MM screening boo BI w bharti HISTORY: Screening mammogram, family history of breast cancer in her mother. TECHNIQUE: Craniocaudal and mediolateral oblique 3-D tomosynthesis images were obtained and synthetic 2-D images were generated. CAD analysis was submitted and interpreted. COMPARISON: 06/04/2022 BREAST PARENCHYMAL COMPOSITION:Not Dense. There are scattered areas of fibroglandular density. FINDINGS: No suspicious mass, calcification, or architectural distortion are identified in either [place] ast to suggest malignancy. There has been no suspicious interval change. IMPRESSION: No mammographic evidence of malignancy. Recommend routine screening mammography in one year. BI-RADS Category 1: Negative Reviewed, dictated and finalized at location . CARE SPECIALIST
== END 2024-07-29 07:27 | disposition home or self-care (01) ==
PROVIDERS: PCP Physician Assistant; Visit Provider Nurse Practitioner Family
DX: Z12.31 Encounter for screening mammogram for malignant neoplasm of breast (principal)
CPT/HCPCS: 77063; 77067